=== PATIENT | male | born 1955 | race Caucasian/White ===

== ENCOUNTER 2020-06-21 09:27 | Outpatient (CLI) | payer SELFPAY | END 2020-06-21 09:28 | disposition EMS.NT | LOC: EMS 09:27 | PROVIDERS: ATTEND Surgery | DX: R09.89 Other specified symptoms and signs involving the circulatory and respiratory systems (principal) ==

== ENCOUNTER 2020-06-28 19:24 | Outpatient (CLI) | payer BC | END 2020-06-28 19:25 | disposition EMS.NT | LOC: EMS 19:24 | PROVIDERS: ATTEND Surgery | DX: R00.0 Tachycardia, unspecified (principal) ==

== ENCOUNTER 2020-06-28 19:34 | Emergency (ER) | payer BC ==
[2020-06-28] MEDS ORDERED: SODIUM CHLORIDE 0.9% 1,000 ML IV STA (19:38)
--- NOTE | 2020-06-28 19:59 | ED Physician Documentation ---
History of Present Illness - Stated complaint Stated Complaint: "HEART ISSUES" - Chief complaint Chief Complaint: Cardiac - History obtained from History obtained from: Patient - Additonal information Additional information: Patient comes emergency department for chief complaint of my defibrillator went off. Patient has a history of SVT which was refractory to both pharmacologic treatment and ablation, so in 2004, he had a defibrillator placed. About 10 years ago, he states, he was converted to a pacemaker/defibrillator for more consistent heart rate control. Patient states that since that time, until this month, he has only had his defibrillator fire once. However, the defibrillator fired on June 21, and after looking at the tracing, his state epidemiologist asked him to increase his metoprolol from 50 twice daily to 100 mg in the morning and at night. Patient states he is also on flecainide but they did not change. Patient states he was formerly on 100 mg of metoprolol twice daily, but they decreased this because the patient was experiencing fatigue. He states his state epidemiologist told him that if he continues to have problems with the SVT cropping up again, that they may need to go back to 100 mg twice daily of the metoprolol. Patient states that he sent the tracing from nasir's episode to the on-call state epidemiologist at [facility], and that he said to take an extra dose metoprolol this evening, which the patient did, making a total of 100 mg of metoprolol [facility]. The patient states that after the defibrillator went off, he did not have any symptoms. He states that prior to this, he did notice some palpitations, but no chest pain or shortness of breath. He states that he felt his pacemaker began to kick in and when that did not control the heart rhythm, and his defibrillator fired. He states that he feels normal now. Patient denies any recent symptoms of illness. He not had any other medication changes. He states that he does not have any other heart problems, specifically, no coronary artery disease. He does note that his grandfather in his 60s of an ME, but states that his grandfather was a heavy drinker and smoker. Patient does not smoke cigarettes, is not a diabetic, and has never been formally diagnosed with hypertension. No swelling in his legs. Patient states he had an echocardiogram yesterday and that this was unremarkable. No other complaints at this time. Review of Systems Ten Systems: 10 systems reviewed and negative Constitutional: reports: Reviewed and negative Eyes: reports: Reviewed and negative Ears: reports: Reviewed and negative Nose: reports: Reviewed and negative Throat: reports: Reviewed and negative Cardiac: reports: Palpitations. denies: Chest pain / pressure, Pedal edema Respiratory: reports: Reviewed and negative. denies: Dyspnea GI: reports: Reviewed and negative. denies: Nausea : reports: Reviewed and negative Skin: reports: Reviewed and negative Musculoskeletal: reports: Reviewed and negative. denies: Extremity swelling Neurologic: reports: Reviewed and negative Psychiatric: reports: Reviewed and negative Endocrine: reports: Reviewed and negative Immunocompromised: reports: Reviewed and negative PD PAST MEDICAL HISTORY - Past Medical History Past Medical History: Yes Cardiovascular: Other - Past Surgical History Past Surgical History: Yes General: Appendectomy Cardiovascular: Pacemaker, AICD - Present Medications Home Medications: Ambulatory Orders Medication Instructions Recorded Confirmed Aspirin Chewable [St Basim 81 mg PO DAILY 06/28/20 06/28/20 Aspirin] Flecainide Acetate 150 mg PO BID 06/28/20 06/28/20 Metoprolol Tartrate 50 mg PO BID 06/28/20 06/28/20 - Allergies Allergies/Adverse Reactions: Allergies Allergy/AdvReac Type Severity Reaction Status Date / Time No Known Drug Allergies Allergy Verified 06/28/20 19:58 - Social History Does the pt smoke?: No Smoking Status: Never smoker Does the pt drink ETOH?: No Does the pt have substance abuse?: No - Immunizations Immunizations are current?: Yes - POLST Patient has POLST: No PD ED PE NORMAL - Vitals Vital signs reviewed: Yes - General General: Alert and oriented X 3, No acute distress - HEENT HEENT: Atraumatic, PERRL, EOMI, Moist mucous membranes - Neck Neck: Supple, no meningeal sign - Cardiac Cardiac: RRR, No murmur, Strong equal pulses - Respiratory Respiratory: No respiratory distress, Clear bilaterally - Abdomen Abdomen: Soft, Non tender, Non distended - Derm Derm: Normal color, Warm and dry, No rash - Extremities Extremities: No deformity, No edema, No calf tenderness / cord - Neuro Neuro: Alert and oriented X 3 - Psych Psych: Normal mood, Normal affect Results - Vitals Vitals: Vital Signs - 24 hr 06/28/20 06/28/20 06/28/20 19:35 19:50 20:39 Temperature 36.6 C Heart Rate 66 62 63 Respiratory 20 14 20 Rate Blood Pressure 133/94 H 113/97 H 131/91 H Blood Pressure 133/94 H [Left] Blood Pressure 113/97 H [Right] O2 Saturation 100 97 100 06/28/20 21:20 Temperature 36.5 C Heart Rate 62 Respiratory 18 Rate Blood Pressure 117/87 H Blood Pressure [Left] Blood Pressure [Right] O2 Saturation 96 Oxygen O2 Source Room air - EKG (time done) 1938 Rate: Rate (enter#) (64) Rhythm: Paced Compare to prior EKG: Old EKG unavailable Computer interpretation: Agree with computer - Labs Labs: Laboratory Tests 06/28/20 06/28/20 19:48 19:48 WBC 6.5 RBC 5.85 Hgb 17.0 Hct 51.4 MCV 87.9 MCH 29.1 MCHC 33.1 RDW 12.7 Plt Count 240 MPV 9.6 Neut # (Auto) 3.9 Lymph # (Auto) 1.7 Stevens # (Auto) 0.7 Eos # (Auto) 0.2 Baso # (Auto) 0.0 Absolute Nucleated RBC 0.00 Nucleated RBC % 0.0 Sodium 137 Potassium 4.1 Chloride 99 L Carbon Dioxide 28 Anion Gap 10.0 BUN 21 H Creatinine 1.3 H Estimated GFR (MDRD) 56 L Glucose 112 H Calcium 10.1 Total Bilirubin 0.7 AST 23 ALT 21 Alkaline Phosphatase 76 Total Protein 7.7 Albumin 4.2 Globulin 3.5 Albumin/Globulin Ratio 1.2 Lipase 47 - Rads (name of study) cxr Radiology: Final report received, EMP read indepedently, See rad report (neg) PD MEDICAL DECISION MAKING - ED course Complexity details: reviewed results, re-evaluated patient, considered differential, d/w patient ED course: The patient was very well-appearing on arrival in the emergency department and had a normal paced rhythm. He was hemodynamically stable. I did feel though that since he has had 2 episodes of defibrillator activation within the last week, he should have some screening labs done here in the emergency department. EKG was also done and showed a normal paced rhythm. The patient remained stable throughout his stay in the emergency unremarkable. I discussed this with the patient, and offered to call the on-call state epidemiologist for the patient's cardiology group. However, the patient's stated she had already spoken with that state epidemiologist and that they had followed the instructions to take the extra dose of metoprolol tonight. The patient states he is going to talk to his state epidemiologist tomorrow and that he can just find out at that time what he is supposed to do with his metoprolol dosing. I feel this is reasonable and the patient stable for discharge home. We have discussed the usual indications for return. Departure - Departure Disposition: 01 Home, Self Care Clinical Impression: SVT (supraventricular tachycardia) Condition: Stable Instructions: ED Tachycardia Pat PSVT Comments: All of your labs look good. There is no evidence of any emergent condition tonight. Please follow through with your plans to talk to your state epidemiologist office tomorrow about whether you should increase your metoprolol to 100 mg twice daily. If you have any further problems with your defibrillator or any further chest discomfort tonight, please do not hesitate to return to the emergency department. Discharge Date/Time: 06/28/20 21:21
[2020-06-28 20:03] LABS: BASOPHILS % (AUTO) 0.5 %; EOSINOPHILS # (AUTO) 0.2 10^3/uL (0.0-0.7); EOSINOPHILS % (AUTO) 2.3 %; LYMPHOCYTES # (AUTO) 1.7 10^3/uL (1.5-3.5); LYMPHOCYTES % (AUTO) 25.8 %; MEAN CORPUSCULAR HEMOGLOBIN 29.1 pg (27.0-31.0); MEAN CORPUSCULAR HGB CONC 33.1 g/dL (32.0-36.0); MEAN CORPUSCULAR VOLUME 87.9 fL (80.0-94.0); MEAN PLATELET VOLUME 9.6 fL (7.4-11.4); MONOCYTES # (AUTO) 0.7 10^3/uL (0.0-1.0); MONOCYTES % (AUTO) 10.5 %; NEUTROPHILS # (AUTO) 3.9 10^3/uL (1.5-6.6); NEUTROPHILS % (AUTO) 60.6 %; PLT - PLATELET COUNT 240 10^3/uL (130-450); RED BLOOD COUNT 5.85 10^6/uL (4.70-6.10); RED CELL DISTRIBUTION WIDTH 12.7 % (12.0-15.0); WHITE BLOOD COUNT 6.5 x10^3/uL (4.8-10.8)
[2020-06-28 20:12] LABS: ALBUMIN 4.2 g/dL (3.2-5.5); ALBUMIN/GLOBULIN RATIO 1.2 (1.0-2.2); BILIRUBIN,TOTAL 0.7 mg/dL (0.2-1.0); CALCIUM 10.1 mg/dL (8.5-10.3); CREATININE 1.3 mg/dL (0.6-1.2); TOTAL PROTEIN 7.7 g/dL (6.7-8.2)
--- NOTE | 2020-06-28 20:13 | XRAY Report ---
PROCEDURE: Chest 1 View X-Ray INDICATIONS: chest pain TECHNIQUE: One view of the chest was acquired. COMPARISON: None FINDINGS: Surgical changes and devices: Left chest wall pacemaker leads are seen in the region of right atrium and right ventricle.. Lungs and pleura: No pleural effusions or pneumothorax. Lungs are clear. Mediastinum: Mediastinal contours appear normal. Heart size is normal. Bones and chest wall: No suspicious bony lesions. Overlying soft tissues appear unremarkable. IMPRESSION: No acute cardiopulmonary pathology. Reviewed by: Javier Hankins MD on 06/28/2020 8:11 PM PDT Approved by: Javier Hankins MD on 06/28/2020 8:11 PM PDT Station ID: [id number]
[2020-06-28 21:21] VITALS: BP 117/87
== END 2020-06-28 21:21 | disposition home or self-care (01) ==
LOC: ED 19:34
DX: I47.1 Supraventricular tachycardia (principal); Z95.0 Presence of cardiac pacemaker; Z79.82 Long term (current) use of aspirin
CPT/HCPCS: 36415; 71045; 80053; 83690; 85025; 93005; 96360; 99284

== ENCOUNTER 2020-07-05 21:58 | Outpatient (CLI) | payer BC | END 2020-07-05 21:59 | disposition short-term general hospital (02) | LOC: EMS 21:58 | PROVIDERS: ATTEND Surgery | DX: R07.89 Other chest pain (principal); R42 Dizziness and giddiness; R11.0 Nausea | CPT/HCPCS: A0425; A0427 ==